=== PATIENT | female | born 1995 | race Two or more races ===

== ENCOUNTER 2025-02-26 15:09 | Emergency (ER) | payer OTHER ==
[~2025-02-26] VITALS: Ht 165.1 cm; Wt 68.0 kg
[2025-02-26] MEDS ORDERED: METOCLOPRAMIDE HCL 5 MG/ML VIAL IM STA (16:50)
[2025-02-26] MEDS ORDERED: 0.9 % SODIUM CHLORIDE 1,000 ML IV STA (16:50)
[2025-02-26] MEDS ORDERED: MORPHINE SULFATE 4 MG/ML VIAL IV STA (16:51)
[2025-02-26] MEDS ORDERED: METOCLOPRAMIDE HCL 5 MG/ML VIAL ONE (17:26)
[2025-02-26 17:31] LABS: BASO % 0.1 % (0.1-1.2); HEMATOCRIT 40.4 % (34.1-44.9); HEMOGLOBIN 13.6 g/dL (11.2-15.7); LYMPH # 0.98 (1.18-3.74); LYMPH % 7.3 % (19.3-53.1); MEAN CORPUSCULAR HEMOGLOBIN 29.2 pg (25.6-32.2); MONO # 0.22 (0.24-0.82); MONO % 1.6 % (4.7-12.5); NEUT % 90.4 % (34.0-71.1); PLATELET COUNT 242 K/uL (163-369); RED BLOOD COUNT 4.65 M/uL (3.93-5.22); RED CELL DISTRIBUTION WIDTH 13.5 % (11.6-14.4)
[2025-02-26 18:10] LABS: CALCIUM 8.2 mg/dL (8.5-10.1); CREATININE SERUM 0.65 mg/dL (0.55-1.02); GFR 106.31; POTASSIUM 4.16 mEq/L (3.5-5.1)
[2025-02-26 22:35] LABS: PH,URINE 5.5 (5.0-8.0); URINE APPEARANCE Clear; URINE BILIRRUBIN Negative (NEGATIVE); URINE BLOOD Moderate; URINE COLOR Yellow; URINE GLUCOSE Negative (NEGATIVE); URINE LEUKOCYTE Negative; URINE NITRATE Negative; URINE PROTEIN Negative (NEGATIVE); URINE UROBILINOGEN 0.2 E.U./dl
[2025-02-26 22:38] LABS: URINE EPITHELIAL CELLS 9.4 uL (0.0-38.8); URINE RBC 37.4 uL (0.0-20.8); URINE WBC 3.6 uL (0.0-23.2)
[2025-02-26 22:46] LABS: URINE CAST 0.14 uL (0.0-1.40); URINE KETONE 40 (NEGATIVE)
[2025-02-26] MEDS ORDERED: OxyCODONE HCL 5 MG TABLET (ROXICODONE) PO STA (23:16)
== END 2025-02-27 01:20 | disposition home or self-care (01) ==
LOC: ER 17:33
DX: O26.899 Other specified pregnancy related conditions, unspecified trimester (principal); R10.2 Pelvic and perineal pain; Z3A.01 Less than 8 weeks gestation of pregnancy